=== PATIENT | female | born 1990 | race Caucasian/White ===

== ENCOUNTER 2017-02-05 15:46 | Emergency (ER) | payer MEDICAID ==
[~2017-02-05] VITALS: Ht 167.6 cm; Wt 104.3 kg
[2017-02-05 15:51] VITALS: BP 144/77
[2017-02-05] MEDS ORDERED: AMOX875T PO (16:07)
[2017-02-05] MEDS ORDERED: ACET-704 PO (16:07)
--- NOTE | 2017-02-05 16:07 | PHYS DOC ---
Past Medical History Past Medical History: No Pertinent History Past Surgical History: No Surgical History Alcohol Use: None Drug Use: None Adult General Chief Complaint Chief Complaint: DENTAL PROBLEM HPI HPI Patient is a 26 year old female who presents with right lower gum dental pain that began yesterday. Patient states she has an appointment with her dentist on February 25, 2017. She states she lives in [place] but is here in [facility] visiting with the grand mother. Review of Systems Review of Systems Constitutional: Denies fever or chills [] HENT: right lower gum dental pain] Musculoskeletal: Denies back pain or joint pain [] Integument: Denies rash or skin lesions [] Neurologic: Denies headache, focal weakness or sensory changes [] Allergies Allergies Allergies Coded Allergies Type Severity Reaction Last Updated Verified tramadol Allergy Severe THROAT SWELLING 02/05/17 Yes gabapentin Allergy Intermediate DIZZINESS, LIGHTHEADEDNESS 02/05/17 Yes Physical Exam Physical Exam Constitutional: Well developed, well nourished, no acute distress, non-toxic appearance. [] HENT: Normocephalic, atraumatic, bilateral external ears normal, oropharynx moist, no oral exudates, nose normal. [] Scattered infected dental caries throughout her teeth. Skin: Warm, dry, no erythema, no rash. [] Back: No tenderness, no CVA tenderness. [] Extremities: No tenderness, no cyanosis, no clubbing, ROM intact, no edema. [] Neurologic: Alert and oriented X 3, normal motor function, normal sensory function, no focal deficits noted. [] Psychologic: Affect normal, judgement normal, mood normal. [] Current Patient Data Vital Signs Vital Signs Date Time Temp Pulse Resp B/P (MAP) Pulse Ox O2 Delivery O2 Flow Rate FiO2 02/05/17 15:51 98.9 107 16 97 Room Air 98.9 EKG EKG [] Radiology/Procedures Radiology/Procedures [] Course & Med Decision Making Course & Med Decision Making Pertinent Labs and Imaging studies reviewed. (See chart for details) This is a 26-year-old female patient who presents with dental pain. Patient was discharged with amoxicillin and Tylenol 3. She is allergic to gabapentin and tramadol. She was instructed to follow-up with her dentist. She states patient has an appointment on the [place] side where she leaves on 02/25/2017 Dragon Disclaimer Dragon Disclaimer This electronic medical record was generated, in whole or in part, using a voice recognition dictation system. Departure Departure Impression: Primary Impression: Dentalgia Additional Impression: Infected dental caries Disposition: HOME, SELF-CARE Condition: STABLE Referrals: NO PCP (PCP) Follow-up with your dentist as soon as possible Patient Instructions: Dental Caries Additional Instructions: You were seen for infected dental caries. Take the prescribed antibiotics until completed. Follow-up with your dentist as soon as possible. Scripts Acetaminophen With Codeine (TYLENOL WITH CODEINE #3 TABLET) 1 Each Tablet 1 TAB PO PRN Q6HRS Y for PAIN, #30 TAB Prov: LINK GREGORY APRN 02/05/17 Amoxicillin (AMOXICILLIN) 875 Mg Tablet 1 TAB PO BID, #20 TAB Prov: LINK GREGORY RETOUCHER 02/05/17 Problem Qualifiers LINK GREGORY APRN Feb 05, 2017 16:07
== END 2017-02-05 16:19 | disposition home or self-care (01) ==
LOC: ER 15:46
DX: K04.7 Periapical abscess without sinus (principal); K02.9 Dental caries, unspecified; Z88.5 Allergy status to narcotic agent; Z88.8 Allergy status to other drugs, medicaments and biological substances
CPT/HCPCS: 99283

== ENCOUNTER 2017-02-08 22:10 | Emergency (ER) | payer MEDICAID ==
[~2017-02-08] VITALS: Ht 167.6 cm; Wt 104.3 kg
[~2017-02-08 22:10] MED LIST: ACET-704 PO; AMOX875T PO
[2017-02-08 22:15] VITALS: BP 145/87
[2017-02-08] MEDS ORDERED: AMOX875T PO (22:26)
--- NOTE | 2017-02-08 22:26 | PHYS DOC ---
Past Medical History Past Medical History: No Pertinent History Past Surgical History: No Surgical History Alcohol Use: None Drug Use: None Adult General Chief Complaint Chief Complaint: DENTAL PROBLEM HPI HPI Patient is a 26 year old female who presents with dental pain and requesting refill of amoxicillin and Tylenol 3 that she go to 3 days ago. Patient states she left the prescription in the boyfriend's car and he went to [place]. Patient denies any fever or trismus. The last time I saw her 3 days ago she stated she is from [place] and is here [place] visiting with the grand mother. Review of Systems Review of Systems Constitutional: Denies fever or chills [] Eyes: Denies change in visual acuity, redness, or eye pain [] HENT: Dental pain Musculoskeletal: Denies back pain or joint pain [] Integument: Denies rash or skin lesions [] Neurologic: Denies headache, focal weakness or sensory changes [] Allergies Allergies Allergies Coded Allergies Type Severity Reaction Last Updated Verified tramadol Allergy Severe THROAT SWELLING 02/05/17 Yes gabapentin Allergy Intermediate DIZZINESS, LIGHTHEADEDNESS 02/05/17 Yes Physical Exam Physical Exam Constitutional: Well developed, well nourished, no acute distress, non-toxic appearance. [] HENT: Normocephalic, atraumatic, bilateral external ears normal, oropharynx moist, no oral exudates, nose normal. [] Scattered dental caries on exam Skin: Warm, dry, no erythema, no rash. [] Back: No tenderness, no CVA tenderness. [] Extremities: No tenderness, no cyanosis, no clubbing, ROM intact, no edema. [] Neurologic: Alert and oriented X 3, normal motor function, normal sensory function, no focal deficits noted. [] Psychologic: Affect normal, judgement normal, mood normal. [] EKG EKG [] Radiology/Procedures Radiology/Procedures [] Course & Med Decision Making Course & Med Decision Making Pertinent Labs and Imaging studies reviewed. (See chart for details) Patient is in the ED requesting a refill of Tylenol 3 and amoxicillin. [place] [facility] [place] She states she left the prescription in the [employer] [employer], who is currently in [place]. Informed her of given a prescription for amoxicillin and she can take [id number] medications as needed. Dragon Disclaimer Dragon Disclaimer This electronic medical record was generated, in whole or in part, using a voice recognition dictation system. Departure Departure Impression: Primary Impression: Dentalgia Disposition: 01 HOME, SELF-CARE Condition: STABLE Referrals: NO PCP (PCP) please follow up with your dentist as soon as you can Patient Instructions: Dental Pain, [id number] Additional Instructions: You were seen for dental pain. This is the second visit within three days. We highly recommend you take the prescribed antibiotics as ordered. We will not refill any prescription pain medicines that had lost, misplaced or stollen. Follow up with your dentist as soon as you can. Scripts Amoxicillin (AMOXICILLIN) 875 Mg Tablet 1 TAB PO BID, #20 TAB Prov: LINK GREGORY APRN 02/08/17 LINK GREGORY APRN Feb 08, 2017 22:26
== END 2017-02-08 22:23 | disposition home or self-care (01) ==
LOC: ER 22:10
DX: K02.9 Dental caries, unspecified (principal); Z88.5 Allergy status to narcotic agent; Z88.8 Allergy status to other drugs, medicaments and biological substances
CPT/HCPCS: 99283

== ENCOUNTER 2017-03-07 17:55 | Emergency (ER) | payer MEDICAID ==
[~2017-03-07] VITALS: Ht 167.6 cm; Wt 104.3 kg
[2017-03-07 18:27] VITALS: BP 139/84
[2017-03-07] MEDS ORDERED: KETOROLAC TROMETHAMINE 60 MG/2 ML INJ. ONE (18:41)
[2017-03-07] MEDS ORDERED: PENI500T PO (18:43)
--- NOTE | 2017-03-07 18:44 | PHYS DOC ---
Past Medical History Past Medical History: No Pertinent History Past Surgical History: No Surgical History Alcohol Use: None Drug Use: None Adult General Chief Complaint Chief Complaint: DENTAL PROBLEM HPI HPI Patient is a 26 year old female presents to the emergency department with complaints of right lower dental pain. She states she's been seen previously in the emergency Department for the same complaint. Patient reports that she finished her antibiotics and felt better, Mr. dental appointment and had to reschedule. She states she has not rescheduled because she has not received free voucher. He states she had recurrence of her dental pain 2 days ago. She has no complaints of fever, no difficulty swallowing or phonation. Review of Systems Review of Systems Constitutional: Denies fever or chills [] Eyes: Denies change in visual acuity, redness, or eye pain [] HENT: Denies nasal congestion or sore throat, complaining of dental pain [] Respiratory: Denies cough or shortness of breath [] Cardiovascular: No additional information not addressed in HPI [] GI: Denies abdominal pain, nausea, vomiting, bloody stools or diarrhea [] : Denies dysuria or hematuria [] Musculoskeletal: Denies back pain or joint pain [] Integument: Denies rash or skin lesions [] Neurologic: Denies headache, focal weakness or sensory changes [] Endocrine: Denies polyuria or polydipsia [] Allergies Allergies Allergies Coded Allergies Type Severity Reaction Last Updated Verified tramadol Allergy Severe THROAT SWELLING 02/05/17 Yes gabapentin Allergy Intermediate DIZZINESS, LIGHTHEADEDNESS 02/05/17 Yes ibuprofen Allergy Intermediate 03/07/17 Yes Physical Exam Physical Exam Constitutional: Well developed, well nourished, no acute distress, non-toxic appearance. [] HENT: Normocephalic, atraumatic, bilateral external ears normal, oropharynx moist, no oral exudates, tooth #31 with decay, surrounding gingiva is erythematous without pointing or fluctuance. Is tender to palpate. Nose normal. [] Eyes: PERRLA, EOMI, conjunctiva normal, no discharge. [] Neck: Normal range of motion, no tenderness, supple without lymphadenopathy, no stridor. [] Cardiovascular:Heart rate regular rhythm, no murmur [] Lungs & Thorax: Bilateral breath sounds clear to auscultation [] Abdomen: Bowel sounds normal, soft, no tenderness, no masses, no pulsatile masses. [] Skin: Warm, dry, no erythema, no rash. [] Back: No tenderness, no CVA tenderness. [] Extremities: No tenderness, no cyanosis, no clubbing, ROM intact, no edema. [] Neurologic: Alert and oriented X 3, normal motor function, normal sensory function, no focal deficits noted. [] Current Patient Data Vital Signs Vital Signs Date Time Temp Pulse Resp B/P (MAP) Pulse Ox O2 Delivery O2 Flow Rate FiO2 03/07/17 18:27 98.2 106 20 96 Room Air 98.2 EKG EKG [] Radiology/Procedures Radiology/Procedures [] Course & Med Decision Making Course & Med Decision Making Pertinent Labs and Imaging studies reviewed. (See chart for details) [] Dragon Disclaimer Dragon Disclaimer This electronic medical record was generated, in whole or in part, using a voice recognition dictation system. Departure Departure Impression: Primary Impression: Infected dental caries Disposition: HOME, SELF-CARE Condition: LEFT WITHOUT BEING SEEN Referrals: NO PCP (PCP) [facility] Patient Instructions: Dental Abscess, Dental Caries Additional Instructions: Please follow-up with the clinic that provided the free dental voucher. Please schedule an appointment. This problem will recur without treatment by a dentist. Scripts Penicillin V Potassium (PENICILLIN V POTASSIUM) 500 Mg Tablet 1 TAB PO QID, #40 TAB Prov: ROSIO SOLORIO APRN 03/07/17 ROSIO SOLORIO APRN Mar 07, 2017 18:43
[2017-03-07] MEDS ORDERED: KETOROLAC TROMETHAMINE 60 MG/2 ML INJ. IM ONE (18:45)
== END 2017-03-07 19:07 | disposition home or self-care (01) ==
LOC: ER 17:55
DX: K02.9 Dental caries, unspecified (principal); K04.7 Periapical abscess without sinus; Z88.6 Allergy status to analgesic agent; Z88.8 Allergy status to other drugs, medicaments and biological substances
CPT/HCPCS: 99283

== ENCOUNTER 2017-07-09 00:11 | Emergency (ER) | payer MEDICAID | END 2017-07-09 00:50 | disposition home or self-care (01) | LOC: ER 00:11 | DX: R68.84 Jaw pain (principal); J02.9 Acute pharyngitis, unspecified; Z88.6 Allergy status to analgesic agent; Z88.8 Allergy status to other drugs, medicaments and biological substances | CPT/HCPCS: 99281 ==